=== PATIENT | female | born 1940 | race Caucasian/White ===

== ENCOUNTER → 2018-11-18 | Outpatient (CLI) | payer MEDICARE ==
[~2018-11-18] MED LIST: BUPIVACAINE MPF 0.5% 10 ML VIAL. IJ ONE; IOHEXOL 300 MG/ML 50 ML VIAL. IJ ONE; methylPREDNISolone ACETATE 80 MG/ML VIAL. INJ ONE
--- NOTE | 2018-11-18 10:41 | RAD ---
Examination: ARTHROCENT INT JT ASP/INJ LT History: Left hip pain Comparison/Correlation: 11/14/2018 left hip x-ray exam with pelvis Findings: Risks and benefits of left hip joint therapeutic injection were discussed with the patient and informed consent was obtained. Fluoroscopy was utilized for total of 0.2 minutes. Cleansing with Betadine swabs was performed. Sterile drape was placed. 5 cc of 1 percent lidocaine was administered at an disc space height of the spinal needle placement. A 20-gauge spinal needle was placed into the left hip joint capsule at the lateral left femoral head-neck junction. 80 mg Depo-Medrol and 3 cc of bupivacaine was injected into the left hip joint capsule. The patient tolerated the procedure well without immediate palpitations. Incidental note is made of severe left hip joint degenerative narrowing and remodeling along with spurring. Impression: Successful left hip joint intracapsular administration of Depo-Medrol and bupivacaine. Electronically signed by: Dayo Cameron MD (11/18/2018 10:38 AM) [facility]
== END | disposition home or self-care (01) ==
LOC: RAD 07:44
PROVIDERS: ATTEND Orthopaedic Surgery Sports Medicine
DX: M25.552 Pain in left hip (principal)
CPT/HCPCS: 20610; 77002; J1040; Q9967; 20605

== ENCOUNTER → 2019-02-03 | Outpatient (CLI) | payer MEDICARE, OTHER ==
[~2019-02-03] MED LIST changes: +ACET500T68 PO; +AMLO5TAB10 PO; -BUPIVACAINE MPF 0.5% 10 ML VIAL. IJ ONE; +CALC-31 PO; +CELE200C PO; +CYCL1DRO OP; +FERR142T13 PO; +FEXO1TAB31 PO; +FLAX1CAP PO; +GLUC1TAB69 PO; -IOHEXOL 300 MG/ML 50 ML VIAL. IJ ONE; +LOSA-73 PO; +METR45CR TP; +MONT10TA49 PO; +MULT1CAP15 PO; +PANT40TA77 PO; +SIMV40TA18 PO; -methylPREDNISolone ACETATE 80 MG/ML VIAL. INJ ONE; +reclast
[2019-02-03 09:36] LABS: BASO % 1 % (0-3); EOS # 0.1 x10^3/uL (0.0-0.7); EOS % 2 % (0-3); HEMATOCRIT 35.9 % (36.0-47.0); LYMPH # 1.8 x10^3/uL (1.0-4.8); LYMPH % 30 % (24-48); MEAN CORPUSCULAR HEMOGLOBIN 31 pg (25-35); MEAN CORPUSCULAR HGB CONC 34 g/dL (31-37); MEAN CORPUSCULAR VOLUME 93 fL (79-100); MONO # 0.5 x10^3/uL (0.0-1.1); MONO % 9 % (0-9); NEUT # 3.4 x10^3/uL (1.8-7.7); NEUT % 59 % (31-73); PLATELET COUNT 310 x10^3/uL (140-400); RED BLOOD COUNT 3.86 x10^6/uL (3.50-5.40); RED CELL DISTRIBUTION WIDTH 12.5 % (11.5-14.5); WHITE BLOOD COUNT 5.8 x10^3/uL (4.0-11.0)
[2019-02-03 09:44] LABS: PROTHROMBIN TIME PATIENT 12.1 SEC (11.7-14.0)
[2019-02-03 09:47] LABS: CALCIUM 9.4 mg/dL (8.5-10.1); CREATININE 0.7 mg/dL (0.6-1.0); GFR 81.1; POTASSIUM 3.8 mmol/L (3.5-5.1)
--- NOTE | 2019-02-03 12:49 | EKG ---
[facility] [address] [place] [address] Test Date: 2019-02-03 Test Time: 12:23:01 Pat Name: TRAMAINE WEST Department: Room: Gender: F Dental Nurse: : 1940 Requested By: SAMMY HERNANDEZ Order Number: [id number] Reading MD: Storm Ramirez Measurements Intervals [place] Rate: 85 P: [place]: QRS: 56 QRSD: 70 T: 78 QT: 380 QTc: 452 Interpretive Statements SINUS ARRHYTHMIA WITH PACS MILD NONSPECIFIC ST-T WAVE CHANGES. Electronically Signed On 02-04-2019 11:47:19 OUTDOOR EMERGENCY CARE TECHNICIAN by Storm Ramirez
--- NOTE | 2019-02-03 15:51 | RAD ---
EXAM: Chest, 2 views. HISTORY: Hypertension. Preoperative evaluation. COMPARISON: None. FINDINGS: 2 views of chest are obtained. There is no infiltrate, pleural effusion or pneumothorax. There is bilateral basilar atelectasis. There is a prominent cardiac silhouette. There is hyperinflation likely due to emphysema. IMPRESSION: 1. Hyperinflation likely due to emphysema. 2. Suspected basilar atelectasis. Electronically signed by: Farrah Dunham MD (02/03/2019 3:48 PM) [place] [id number]
== END | disposition home or self-care (01) ==
LOC: SURGPAT 12:33
PROVIDERS: ATTEND Orthopaedic Surgery Sports Medicine
DX: Z01.818 Encounter for other preprocedural examination (principal); M16.12 Unilateral primary osteoarthritis, left hip; I10 Essential (primary) hypertension; J98.11 Atelectasis
CPT/HCPCS: 36415; 71046; 80048; 82040; 82306; 85025; 85610; 85651; 85730; 87641; 93005

== ENCOUNTER 2019-02-24 05:59 | Inpatient (IN) | payer MEDICARE, OTHER ==
[~2019-02-24] VITALS: Ht 157.5 cm; Wt 60.0 kg
[2019-02-24] VITALS (8 sets, daily range): BP systolic 110–137; BP diastolic 49–85
[2019-02-24] MEDS ORDERED: ACETAMINOPHEN 500 MG TABLET PO PRN (06:00)
[2019-02-24] MEDS ORDERED: TRANEXAMIC ACID 1,000 MG in IV NS 50ML -- 1ST BAG INJ ONE (06:00)
[2019-02-24] MEDS ORDERED: ceFAZolin SODIUM IV Push 1 GM VIAL. IVP PRN (06:00)
[2019-02-24] MEDS ORDERED: MELOXICAM 7.5 MG TABLET PO PRN (06:00)
[2019-02-24] MEDS ORDERED: ONDANSETRON PF 4 MG/2 ML VIAL. IV PRN (07:00)
[2019-02-24] MEDS ORDERED: PROCHLORPERAZINE 10 MG/2 ML VIAL. IV PRN (07:00)
[2019-02-24] MEDS ORDERED: LIDOCAINE 1% PF 2 ML VIAL. ID PRN (07:00)
[2019-02-24] MEDS ORDERED: IV RINGERS,LACTATED 1000ML 1,000 ML IV SCH (07:00)
[2019-02-24] MEDS ORDERED: fentaNYL PF VIAL 100 MCG/2 ML VIAL IV PRN ×2 (07:00→07:15)
[2019-02-24] MEDS ORDERED: HYDROmorphone 2 MG/ML VIAL IV PRN (07:00)
[2019-02-24] MEDS ORDERED: MORPHINE SULFATE 2 MG/ML VIAL. IV PRN ×2 (07:00→07:15)
[2019-02-24] MEDS ORDERED: WARF-78 PO (07:04)
[2019-02-24] MEDS ORDERED: fentaNYL PF VIAL 100 MCG/2 ML VIAL ONE ×2 (07:09→08:28)
[2019-02-24] MEDS ORDERED: PROPOFOL 20 ML IV ONE (07:09)
[2019-02-24] MEDS ORDERED: DEXAMETHASONE SOD PHOS 4 MG/ML VIAL ONE (07:09)
[2019-02-24] MEDS ORDERED: ROCURONIUM 50 MG/5 ML VIAL. ONE (07:09)
[2019-02-24] MEDS ORDERED: LIDOCAINE 2% PF 5 ML VIAL. ONE (07:09)
[2019-02-24] MEDS ORDERED: FAMOTIDINE 20 MG/2 ML VIAL ONE (07:09)
[2019-02-24] MEDS ORDERED: diphenhydrAMINE 50 MG/ML VIAL IV PRN (07:15)
[2019-02-24] MEDS ORDERED: METOCLOPRAMIDE HCL 10 MG/2 ML VIAL. IV PRN (07:15)
[2019-02-24] MEDS ORDERED: ZOLPIDEM 5 MG TABLET. PO PRN (07:15)
[2019-02-24] MEDS ORDERED: PROCHLORPERAZINE 5 MG TABLET. PO PRN (07:15)
[2019-02-24] MEDS ORDERED: IV DEXTROSE 5% 250 ML BAG. IV PRN (07:15)
[2019-02-24] MEDS ORDERED: 0.9 % SODIUM CHLORIDE 10 ML DISP.SYRIN. IV PRN (07:15)
[2019-02-24] MEDS ORDERED: DEXTROSE 50% 25 GM / 50ML DISP.SYRIN. IV PRN (07:15)
[2019-02-24 07:24] LABS: PROTHROMBIN TIME PATIENT 13.9 SEC (11.7-14.0)
[2019-02-24] MEDS ORDERED: ceFAZolin SODIUM IV Push 1 GM VIAL. IVP ONE (07:30)
[2019-02-24] MEDS ORDERED: TRANEXAMIC ACID 1,000 MG in IV NS 50ML -- 2ND BAG INJ ONE (08:00)
[2019-02-24] MEDS: MORPHINE SULFATE 5 MG, KETOROLAC 30MG VIAL 30 MG, ROPIVacaine 0.5% PF 60 ML, EPINEPHrin... INT ART ONE ×10 (08:21→09:10)
[2019-02-24] MEDS ORDERED: NEOSTIGMINE METHYLSULFATE 5 MG/5 ML SYRINGE. ONE (08:59)
[2019-02-24] MEDS ORDERED: GLYCOPYRROLATE 1 MG/5 ML VIAL. ONE (08:59)
[2019-02-24] MEDS ORDERED: FERROUS SULFATE 142 MG PO SCH (09:00)
[2019-02-24] MEDS ORDERED: ACETAMINOPHEN 500 MG TABLET PO SCH (09:00)
[2019-02-24] MEDS ORDERED: DESFLURANE > 120 MINUTES IH ONE (09:17)
--- NOTE | 2019-02-24 09:50 | PDOC4 ---
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 Findings: Advanced primary degenerative joint disease of right hip. Blood loss: 150 mL Complications: None Components inserted Gilman and nephew 48 mm R3 shell with a 20 posteriorly directed liner, size 5 standard offset anthology stem with a 32+0 cobalt chrome head Reason for procedure: Patient is a very pleasant individual with severe progressive pain interfering with her activities of daily living and attributable to the above preoperative diagnosis. Clinical and radiographic examination were consistent with the above preoperative diagnosis and after discussion of the risks, benefits, and alternatives, taking into account her failure of conservative therapies, the patient elected to proceed with surgery. Description of procedure: Patient was greeted in the preoperative area by myself for the correct extremity was verified and marked. She was taken back to the operative suite and antibiotics were started as they were brought back. Once in the operative room, patient was transferred gently supine to the operating table and secured to the bed with all pressure points padded. Axillary roll was used. The down leg was padded at the fibular head and heel. Patient was secured the bed with our hip positioning devices. I then appreciated leg lengths in this position. After this, the operative extremity was prepped and draped in our usual sterile fashion including an Ioban Page. We then proceeded to conduct our standard preoperative timeout. I then palpated and marked surface anatomy and avery a line from my standard posterolateral skin incision. Skin was incised with a scalpel and subcutaneous tissue was dissected down the level of fascia with electrocautery. Bleeders were cauterized as they were encountered. Paez elevator was used to sweep aside adherent subcutaneous tissue for later identification and repair of the fascia. Fascia was then incised in line with the skin incision and the gluteus rasheeda was split bluntly in line with its fibers. There was abundant fibrotic tissue present and I excised some of this for exposure. After this, a lap was used to push bursal tissue posteriorly to identify the piriformis and quadratus, these were taken down, the piriformis was tagged for later repair. Our self-retaining retractor was in place. At this point, identified the hip capsule incised in a T-type incision, tagging ends for later repair. The hip was dislocated. I then palpated and marked with electrocautery areas at the greater and lesser trochanters and center of the femoral head and I made measurements for length and offset. I then avery a line on the neck about 1 cm proximal lesser trochanter and made my neck cut through this. The bony remnant was delivered from the operative field. We placed our acetabular retractors and inspected the acetabulum. I excised the soft tissues from the floor the acetabulum as well as the labrum. Osteophytes were taken down posteriorly. After this, we began reaming and reamed down until we encountered a punctate bleeding bony bed. The operative field and then thoroughly irrigated out. The cup was then impacted referencing kwethluk anatomy and the crossbar attachment. I had identified the transverse acetabular ligament. After this, I palpated for the posterior column and greater sciatic notch and referenced this to place a screw into the posterior column. The operative field was irrigated again and my polyethylene liner was then impacted in position and confirmed that it was fully seated on circumferential visualization. We then removed our acetabular retractors and used our proximal femoral elevator and repositioned the leg. I used the marito cutting osteotome followed by canal finding reamer followed by lateralizing reamer. We then began broaching and broached to the above size and trialed different head and necks, using our measurements as a guide as well. The above sizes gave the best range of motion and stability. After this, the trial components were removed and the canal was thoroughly irrigated. I then impacted my femoral stem into position. We then re-trialed the head sizes and selected the above size. The hip was redislocated and the Shultz taper region was washed and dried. The femoral head was then gently impacted in position and the acetabulum was inspected and irrigated to make sure was free of debris. After this, the hip was reduced. Excellent range of motion and stability were achieved. I was happy with the leg lengths. We then closed capsule with simple interrupted #2 Ethibond. Piriformis was reapproximated through drill holes. I then injected my periarticular mixture into the sandy-incisional soft tissues below. Fascia was closed was running #2 Quill suture. Inverted interrupted 2-0 Vicryl in a multilayered fashion was used for subcutaneous tiss ue and running 3-0 Monocryl for skin. Prior to wound closure, all counts correct 2. No complications. At the conclusion, the hip region was cleansed and dried and our incisional wound vacuum was applied. Patient tolerated surgery well. At the conclusion, they were laid supine and transferred gently supine to the hospital bed and taken to PACU in a stable and extubated condition. P ostoperative plan is to admit the patient to the joint center for DVT and antibiotic prophylaxis as well as to begin the rehabilitation and receive likely IV pain medicine. GELACIO HERNANDEZ II, MD Feb 24, 2019 09:50
[2019-02-24] MEDS: fentaNYL PF VIAL 100 MCG/2 ML VIAL IV PRN ×2 (09:55→10:04)
--- NOTE | 2019-02-24 10:31 | RAD ---
AP view of the pelvis Clinical indications: Postoperative study. FINDINGS: Total left hip arthroplasty is evident which is well aligned in this AP projection. The femoral stem is located centrally within the intramedullary canal of the proximal left femur. No acute fracture or lytic process is seen. IMPRESSION: Total left hip arthroplasty. Electronically signed by: Julito Rubin MD (02/24/2019 10:28 AM) [id number]
[2019-02-24] MEDS: CALCIUM CARB/VIT D3 500/200 TABLET. PO SCH ×2 (12:00→16:30)
[2019-02-24] MEDS: ONDANSETRON PF 4 MG/2 ML VIAL. IV SCH ×2 (12:00→17:35)
[2019-02-24] MEDS: ONDANSETRON ODT 4 MG TAB.RAPDIS. PO SCH ×2 (12:00→17:35)
[2019-02-24] MEDS: IV NORMAL SALINE 1000ML BAG 1,000 ML IV SCH (12:15)
[2019-02-24] MEDS: ceFAZolin SODIUM IV Push 1 GM VIAL. IVP SCH ×2 (12:29→19:09)
[2019-02-24] MEDS: PSEUDOEPHEDRINE ER 120 MG TABLET.ER. PO SCH (12:52)
[2019-02-24] MEDS: CETIRIZINE HCL 10 MG TABLET. PO SCH (12:52)
[2019-02-24] MEDS ORDERED: WARFARIN 7.5 MG TABLET. PO ONE (16:00)
[2019-02-24] MEDS: FERROUS SULFATE 325 MG TABLET. PO SCH (16:30)
[2019-02-24] MEDS: oxyCODONE IR 5 MG TABLET PO PRN ×2 (16:31→20:38)
[2019-02-24] MEDS: SIMVASTATIN 40 MG TABLET. PO SCH (20:37)
[2019-02-24] MEDS: MONTELUKAST SODIUM 10 MG TABLET. PO SCH (20:37)
[2019-02-24] MEDS: metroNIDAZOLE 0.75% TOPICAL 1 APP TUBE TP SCH (20:38)
[2019-02-25] MEDS: ceFAZolin SODIUM IV Push 1 GM VIAL. IVP SCH (01:13)
[2019-02-25 03:00] VITALS: BP 138/69
[2019-02-25 04:40] LABS: HEMATOCRIT 28.8 % (36.0-47.0); HEMOGLOBIN 9.8 g/dL (12.0-15.5)
[2019-02-25 04:46] LABS: PROTHROMBIN TIME PATIENT 17.1 SEC (11.7-14.0)
[2019-02-25] MEDS: oxyCODONE IR 5 MG TABLET PO PRN ×5 (05:33→21:37)
[2019-02-25 06:00] VITALS: BP 129/76
[2019-02-25] MEDS: ONDANSETRON ODT 4 MG TAB.RAPDIS. PO SCH ×2 (06:00)
[2019-02-25] MEDS: ONDANSETRON PF 4 MG/2 ML VIAL. IV SCH ×2 (06:00)
[2019-02-25] MEDS ORDERED: MAGNESIUM HYDROXIDE 2,400 MG/30 ML ORAL.SUSP. PO PRN (06:00)
[2019-02-25] MEDS: IV NORMAL SALINE 1000ML BAG 1,000 ML IV SCH (06:51)
[2019-02-25] MEDS ORDERED: PANTOPRAZOLE 40 MG TABLET.DR. PO SCH (07:30)
[2019-02-25] MEDS: CALCIUM CARB/VIT D3 500/200 TABLET. PO SCH ×3 (08:01→17:05)
[2019-02-25] MEDS: CETIRIZINE HCL 10 MG TABLET. PO SCH ×2 (08:02→20:59)
[2019-02-25] MEDS: PSEUDOEPHEDRINE ER 120 MG TABLET.ER. PO SCH ×2 (08:03→21:00)
[2019-02-25] MEDS: ACETAMINOPHEN 500 MG TABLET PO SCH ×3 (08:03→20:59)
[2019-02-25] MEDS: SENNOSIDES/DOCUSATE 8.6/50MG TABLET. PO SCH (08:04)
[2019-02-25] MEDS: MULTIVITAMIN with MINERAL TABLET. PO SCH (08:04)
[2019-02-25] MEDS: FERROUS SULFATE 325 MG TABLET. PO SCH ×2 (08:04→17:05)
[2019-02-25] MEDS: amLODIPine BESYLATE 5 MG TABLET PO SCH (08:07)
[2019-02-25] MEDS: metroNIDAZOLE 0.75% TOPICAL 1 APP TUBE TP SCH ×2 (08:10→19:46)
--- NOTE | 2019-02-25 08:48 | PDOC ---
ORTHO PROGRESS NOTES Subjective Patient feels like she is doing well. She did have some very brief episodes where she was shaking, these were short-lived. She denies any chest pain, trouble breathing, dizziness or lightheadedness. Vitals Vital Signs Date Time Temp Pulse Resp B/P (MAP) Pulse Ox O2 Delivery O2 Flow Rate FiO2 02/25/19 08:10 Room Air 02/25/19 08:07 87 121/70 02/25/19 06:34 20 94 02/25/19 06:00 98.1 98.1 02/24/19 10:04 10.0 Labs Laboratory Tests Test 02/24/19 06:55 02/25/19 03:35 Prothrombin Time 13.9 SEC (11.7-14.0) 17.1 SEC (11.7-14.0) Prothromb Time International Ratio 1.1 (0.8-1.1) 1.4 (0.8-1.1) Activated Partial Thromboplast Time 32 SEC (24-38) Hemoglobin 9.8 g/dL (12.0-15.5) Hematocrit 28.8 % (36.0-47.0) Mean Corpuscular Hemoglobin Concent 34 g/dL (31-37) Laboratory Tests Test 02/25/19 03:35 Hemoglobin 9.8 g/dL (12.0-15.5) Hematocrit 28.8 % (36.0-47.0) Mean Corpuscular Hemoglobin Concent 34 g/dL (31-37) Prothrombin Time 17.1 SEC (11.7-14.0) Prothromb Time International Ratio 1.4 (0.8-1.1) Notes She is awake and alert and sitting in bed. Dressing is intact. Normal motor and sensation are present in her operative extremity. Assessment and Plan She will continue PT and OT after her left total hip arthroplasty. We will monitor her symptoms. Continue Coumadin. SAMMY HERNANDEZ II, MD Feb 25, 2019 08:48
[2019-02-25] MEDS ORDERED: ONDANSETRON PF 4 MG/2 ML VIAL. IV PRN (12:00)
[2019-02-25] MEDS ORDERED: ONDANSETRON ODT 4 MG TAB.RAPDIS. PO PRN (12:00)
--- NOTE | 2019-02-25 14:48 | NUR ---
Pharmacy Warfarin Dosing Note S:Pharmacy consulted to assist with anticoagulation therapy started with target INR: 1.6 - 2.5 O:TRAMAINE WEST is a 78 year old F with BALJIT LABS: Last INR: 1.4 Last HGB: 9.8 Last HCT: 28.8 Last PLT: Last dose of 7.5 mg given on 02/24/19 at 1629 Previous Regimen: Vitamin K given: Drug Interaction Changes: Ongoing Drug Interactions: A:INR of 1.4 is below desired range. Target range for this patient is: 1.6 - 2.5 P: Warfarin dose: 5 mg Today at 1600 Bridge Therapy: Next INR due IN AM Pharmacy anticoagulation service will continue to follow. DOC HICKS [facility], 02/25/19 1053
[2019-02-25] MEDS ORDERED: WARFARIN 5 MG TABLET. PO ONE (16:00)
[2019-02-25] MEDS ORDERED: BISACODYL 10 MG SUPP.RECT. PR PRN (16:00)
[2019-02-25] MEDS: CALCIUM CARBONATE 500 MG TAB.CHEW PO PRN ×2 (17:08→21:01)
[2019-02-25 17:55] VITALS: BP 145/83
[2019-02-25] MEDS: LOSARTAN POTASSIUM 50 MG TABLET. PO SCH (20:57)
[2019-02-25] MEDS: MONTELUKAST SODIUM 10 MG TABLET. PO SCH (20:58)
[2019-02-25] MEDS: SIMVASTATIN 40 MG TABLET. PO SCH (20:59)
--- NOTE | 2019-02-25 21:49 | NUR ---
Roxicodone and MOM given per request. Saline lock DC'd after painful flush and redness at site. Ambulates w/o difficulty.
[2019-02-26] MEDS: oxyCODONE IR 5 MG TABLET PO PRN ×3 (01:35→20:03)
[2019-02-26] MEDS: CALCIUM CARBONATE 500 MG TAB.CHEW PO PRN ×2 (01:39→20:03)
[2019-02-26] MEDS: ACETAMINOPHEN 500 MG TABLET PO SCH ×4 (03:00→21:17)
[2019-02-26 05:08] LABS: HEMATOCRIT 28.2 % (36.0-47.0); HEMOGLOBIN 9.9 g/dL (12.0-15.5)
[2019-02-26 05:17] LABS: PROTHROMBIN TIME PATIENT 23.9 SEC (11.7-14.0)
[2019-02-26 05:42] VITALS: BP 127/81
--- NOTE | 2019-02-26 06:36 | NUR ---
+ loose stool. Assisted into recliner. Call light in reach.
[2019-02-26] MEDS: PANTOPRAZOLE 40 MG TABLET.DR. PO SCH (06:51)
--- NOTE | 2019-02-26 07:37 | PDOC ---
ORTHO PROGRESS NOTES Subjective Patient with no complaint of pain this morning but is nauseated. Post-op Day: 1 Procedure L BALJIT Vitals Vital Signs Date Time Temp Pulse Resp B/P (MAP) Pulse Ox O2 Delivery O2 Flow Rate FiO2 02/26/19 05:42 97.7 83 20 127/81 (96) 96 Room Air 97.7 Labs Laboratory Tests Test 02/25/19 03:35 02/26/19 04:10 Hemoglobin 9.8 g/dL (12.0-15.5) 9.9 g/dL (12.0-15.5) Hematocrit 28.8 % (36.0-47.0) 28.2 % (36.0-47.0) Mean Corpuscular Hemoglobin Concent 34 g/dL (31-37) 35 g/dL (31-37) Prothrombin Time 17.1 SEC (11.7-14.0) 23.9 SEC (11.7-14.0) Prothromb Time International Ratio 1.4 (0.8-1.1) 2.2 (0.8-1.1) Laboratory Tests Test 02/26/19 04:10 Hemoglobin 9.9 g/dL (12.0-15.5) Hematocrit 28.2 % (36.0-47.0) Mean Corpuscular Hemoglobin Concent 35 g/dL (31-37) Prothrombin Time 23.9 SEC (11.7-14.0) Prothromb Time International Ratio 2.2 (0.8-1.1) Notes awake and alert sitting in chair at bedside. Assessment and Plan POD # 1 S/P L BALJIT motor and sensation intact distally dressing dry and intact calf soft and non tender PT today NIEVES العراقي APRN Feb 26, 2019 07:37
[2019-02-26] MEDS: FERROUS SULFATE 325 MG TABLET. PO SCH ×2 (08:00→17:00)
[2019-02-26] MEDS: CALCIUM CARB/VIT D3 500/200 TABLET. PO SCH ×3 (08:00→17:00)
[2019-02-26] MEDS: CETIRIZINE HCL 10 MG TABLET. PO SCH ×2 (09:00→21:15)
[2019-02-26] MEDS: PSEUDOEPHEDRINE ER 120 MG TABLET.ER. PO SCH ×2 (09:00→21:00)
[2019-02-26] MEDS: MULTIVITAMIN with MINERAL TABLET. PO SCH (09:00)
[2019-02-26] MEDS: SENNOSIDES/DOCUSATE 8.6/50MG TABLET. PO SCH (09:00)
--- NOTE | 2019-02-26 10:08 | NUR ---
Pharmacy Warfarin Dosing Note S:Pharmacy consulted to assist with anticoagulation therapy started with target INR: 1.6 - 2.5 O:TRAMAINE WEST is a 78 year old F with BALJIT LABS: Last INR: 2.2 Last HGB: 9.9 Last HCT: 28.2 Last dose of 5 mg given on 02/25/19 at 1706 A:INR of 2.2 is within desired range. Target range for this patient is: 1.6 - 2.5 P: Warfarin dose: 1 mg Today at 1600 Next INR due 02/27/19 AM Pharmacy anticoagulation service will continue to follow. GUICHO SONG [facility], 02/26/19 [id number]
[2019-02-26] MEDS: amLODIPine BESYLATE 5 MG TABLET PO SCH (11:48)
[2019-02-26] MEDS: metroNIDAZOLE 0.75% TOPICAL 1 APP TUBE TP SCH ×2 (11:57→21:00)
--- NOTE | 2019-02-26 15:07 | PATHOLOGY ---
[facility] Accession Number: [id number] . 01 Material submitted: . femur - FEMORAL HEAD, LEFT. Modifiers: head, left . 01 Clinical history: . Primary osteoarthritis left hip . 02 Diagnosis: Femoral head, left total hip arthroplasty: - Advanced degenerative arthritis with subarticular fibrosis and focal bone remodeling. . (JPM:mml; 02/26/2019) [facility] 02/26/2019 1259 Local . 02 Comment: There is no evidence of malignancy. . (JPM:mml; 02/26/2019) . 02 Electronically signed: . Surya Cast MD, Pathologist NPI- [id number] . 01 Gross description: . The specimen is received in formalin, labeled "Gabbie Jimenez, left femoral head". Received is a femoral head with attached femoral neck measuring 5.1 x 4.6 x 4.4 cm in greatest dimensions. The articular surface is smooth to granular in appearance with a moderate to severe amount of eburnation, as well as osteophytic lipping. Sectioning reveals yellow-white to pink-white cut surfaces with no grossly distinct nodules or lesions. The specimen is submitted representatively in cassette A1, following decalcification. (CAA; 02/24/2019) QAC/QAC 02/24/2019 1605 Local . 02 Pathologist provided ICD-10: M16.12 . 02 CPT . 846074, [id number] Specimen Comment: A courtesy copy of this report has been sent to [phone], [phone] Specimen Comment: [id number] Specimen Comment: Report sent to / DR HOOD Performed at: [address], [place], [place] [id number] MD Martin Braun MD Phone: [phone] Performed at: [address] [id number] MD Surya Cast MD Phone: [phone]
[2019-02-26] MEDS: WARFARIN 1 MG TABLET. PO ONE ×2 (15:49→16:00)
--- NOTE | 2019-02-26 16:00 | NUR ---
Held Al today, pt having surgery in am. Addendum: 02/26/19 at 1908 by AMY GIL RN Ignore above note, charted on wrong patient.
--- NOTE | 2019-02-26 16:24 | SNU/HH DC ---
DISCHARGE ORDERS DISCHARGE INFORMATION: DISCHARGE DATE: Feb 27, 2019 FINAL DIAGNOSIS Left hip DJD, s/p BALJIT CONDITION ON DISCHARGE: Stable CODE STATUS: Code Status: Full INTERMEDIATE: SNF STAY <30 DAYS: Yes HOSPICE: HOSPICE: No HOSPICE EVAL & TREAT: No LTAC: ADMIT TO LTAC: No POST DISCHARGE ORDERS: ACTIVITY ORDERS: Activity as tolerated WEIGHT BEARING STATUS: As tolerated BATHING ORDERS: Shower-keep dressing dry DIET AFTER DISCHARGE: Regular WOUND/INCISION CARE: Ice to area for comfort, Do not change dressing FOLLOW-UP: PHYSICIAN FOLLOW-UP: Eunice in 2 wks ANTICOAGULATION F/U NEEDED: per Pharmacy TREATMENT/EQUIPMENT ORDERS: Physical Therapy For: Evalulation/Treatment Occupational Therapy For: Evaluation/Treatment DISCHARGE MEDICATIONS: Home Meds Reported Medications Warfarin Sodium (COUMADIN) 5 Mg Tablet, 5 MG PO X1 NIGHT PRIOR TO MANN for PREOP, #30 TAB 02/24/19 Metronidazole (METRONIDAZOLE) 45 Gm Cream..g., 45 GM TP BID for for skin outbreaks, EACH 02/04/19 [reclast] No Conflict Check, 1 UD 02/04/19 Calcium Carbonate/Vitamin D3 (CALCIUM 500 + D TABLET) 1 Each Tablet, 1 EACH PO TID for treat osteopenia, TAB 02/03/19 Fexofenadine/Pseudoephedrine (LISA-D 24 HOUR TABLET) 1 Each Tab.er.24h, 1 EACH PO DAILY for treat allergies, TAB 02/03/19 Acetaminophen (ACETAMINOPHEN) 500 Mg Tablet, 500 MG PO DAILY for treat arthritis pain, TAB 02/03/19 Celecoxib (CELEBREX) 200 Mg Capsule, 200 MG PO BID for anti-inflammatory for 30 Days, CAP 0 Refills 02/03/19 Losartan Potassium (LOSARTAN POTASSIUM) 50 Mg Tablet, 25 MG PO DAILY for HYPERTENSION, TAB 02/03/19 Cyclosporine (RESTASIS) 1 Each Droperette, 1 EACH OP DAILY for treat dry eyes, DROP 02/03/19 Montelukast Sodium (MONTELUKAST SODIUM TABLET ) 10 Mg Tablet, 10 MG PO HS for FOR ASTHMA, TAB 0 Refills 02/03/19 Flaxseed/Omega3,6,9/Fatty Acid (FLAX SEED OIL 1,300 MG SOFTGEL) 1 Each Capsule, 1000 MG PO DAILY for supplement, CAP 02/03/19 Glucosamine Hcl/Chondr Mann A Na (OSTEO BI-FLEX CAPLET) 1 Each Tablet, 1 EACH PO DAILY for supplement, TAB 02/03/19 Multivitamin (MULTIVITAMINS) 1 Each Capsule, 1 EACH PO DAILY for supplement, CAP 02/03/19 Simvastatin (SIMVASTATIN) 40 Mg Tablet, 40 MG PO HS for FOR CHOLESTEROL, #30 TAB 0 Refills 02/03/19 Amlodipine Besylate (AMLODIPINE BESYLATE) 5 Mg Tablet, 5 MG PO DAILY for treat hypertension, TAB 02/03/19 Ferrous Sulfate (Slow Fe) 142 Mg Tablet.er, 142 MG PO DAILY for treat anemia, TAB.SR 02/03/19 Pantoprazole Sodium (PANTOPRAZOLE SODIUM ) 40 Mg Tablet.dr, 20 MG PO DAILYAC for GERD, TAB 02/03/19 SAMMY HERNANDEZ II, MD Feb 26, 2019 16:24
[2019-02-26 18:01] VITALS: BP 115/56
[2019-02-26 21:00] VITALS: BP 139/75
[2019-02-26] MEDS: MONTELUKAST SODIUM 10 MG TABLET. PO SCH (21:15)
[2019-02-26] MEDS: SIMVASTATIN 40 MG TABLET. PO SCH (21:16)
[2019-02-26] MEDS: LOSARTAN POTASSIUM 50 MG TABLET. PO SCH (21:17)
[2019-02-27] MEDS: oxyCODONE IR 5 MG TABLET PO PRN ×3 (02:26→13:16)
[2019-02-27] MEDS: ACETAMINOPHEN 500 MG TABLET PO SCH ×2 (03:00→08:29)
[2019-02-27 05:50] LABS: HEMATOCRIT 28.5 % (36.0-47.0); HEMOGLOBIN 9.8 g/dL (12.0-15.5)
[2019-02-27 05:53] VITALS: BP 129/73
[2019-02-27] MEDS: PANTOPRAZOLE 40 MG TABLET.DR. PO SCH (05:58)
[2019-02-27] MEDS ORDERED: BISACODYL 5 MG TABLET.DR. PO PRN (06:00)
[2019-02-27 06:01] LABS: PROTHROMBIN TIME PATIENT 20.1 SEC (11.7-14.0)
--- NOTE | 2019-02-27 06:03 | NUR ---
Assisted to toilet then recliner. Bisacodyl tabs given per request. + flatus.
[2019-02-27] MEDS: FERROUS SULFATE 325 MG TABLET. PO SCH (08:00)
[2019-02-27] MEDS: CALCIUM CARB/VIT D3 500/200 TABLET. PO SCH ×2 (08:28→13:09)
[2019-02-27] MEDS: MULTIVITAMIN with MINERAL TABLET. PO SCH (08:29)
[2019-02-27] MEDS: PSEUDOEPHEDRINE ER 120 MG TABLET.ER. PO SCH (08:29)
[2019-02-27] MEDS: SENNOSIDES/DOCUSATE 8.6/50MG TABLET. PO SCH (08:29)
[2019-02-27] MEDS: CETIRIZINE HCL 10 MG TABLET. PO SCH (08:29)
[2019-02-27] MEDS: amLODIPine BESYLATE 5 MG TABLET PO SCH (08:31)
[2019-02-27 08:35] VITALS: BP 128/80
--- NOTE | 2019-02-27 08:40 | PDOC ---
ORTHO PROGRESS NOTES Subjective She is complaining of some indigestion this morning, her pain is controlled. She denies any vomiting, she is having bowel movements, passing gas, tolerating her diet. Vitals Vital Signs Date Time Temp Pulse Resp B/P (MAP) Pulse Ox O2 Delivery O2 Flow Rate FiO2 02/27/19 08:35 101 128/80 (96) 02/27/19 08:12 Room Air 02/27/19 05:53 97.9 20 96 97.9 Labs Laboratory Tests Test 02/26/19 04:10 02/27/19 05:07 Hemoglobin 9.9 g/dL (12.0-15.5) 9.8 g/dL (12.0-15.5) Hematocrit 28.2 % (36.0-47.0) 28.5 % (36.0-47.0) Mean Corpuscular Hemoglobin Concent 35 g/dL (31-37) 35 g/dL (31-37) Prothrombin Time 23.9 SEC (11.7-14.0) 20.1 SEC (11.7-14.0) Prothromb Time International Ratio 2.2 (0.8-1.1) 1.7 (0.8-1.1) Laboratory Tests Test 02/27/19 05:07 Hemoglobin 9.8 g/dL (12.0-15.5) Hematocrit 28.5 % (36.0-47.0) Mean Corpuscular Hemoglobin Concent 35 g/dL (31-37) Prothrombin Time 20.1 SEC (11.7-14.0) Prothromb Time International Ratio 1.7 (0.8-1.1) Notes She is awake and alert and sitting in a chair. She remains neurovascularly intact to her operative extremity Assessment and Plan She can be transferred to [facility] today. Weight-bear as tolerated. She should receive PT and OT. Coumadin for 1 month. SAMMY HERNANDEZ II, MD Feb 27, 2019 08:40
[2019-02-27] MEDS: metroNIDAZOLE 0.75% TOPICAL 1 APP TUBE TP SCH (09:00)
[2019-02-27] MEDS ORDERED: WARF4TAB64 PO (10:57)
--- NOTE | 2019-02-27 10:58 | NUR ---
Pharmacy Warfarin Dosing Note S:Pharmacy consulted to assist with anticoagulation therapy started 02/24/19 with target INR: 1.6 - 2.5 O:TRAMAINE WEST is a 78 year old F with a BALJIT Allergies:No Known Medication Allergies lactose Height: 5 feet, 2 inches Weight: 60 kg LABS: Last INR: 1.7 Last HGB: 9.8 Last HCT: 38.5 Last PLT: - Ongoing Drug Interactions: A:INR within desired Range. Target Range for this patient is: 1.6 - 2.5 P: Warfarin dose: 4 mg will be given today prior to discharge. Give 4 mg daily. Draw INR on 03/03/19, and request attending physician to dose warfarin for a goal INR 1.6 - 2.5 through end of therapy 04/06/19 (6 weeks of therapy). Indication for warfarin is prevention of VTE after major joint surgery. HEATHER GROSS [facility], 02/27/19 1054
--- NOTE | 2019-02-27 10:59 | PDOC3 ---
Discharge Summary Visit Information Date of Admission: Feb 24, 2019 Date of Discharge: Feb 27, 2019 Admitting Diagnosis: advanced left hip degenerative joint disease Brief Hospital Course Allergies Allergies Coded Allergies Type Severity Reaction Last Updated Verified No Known Medication Allergies Allergy Unknown 02/21/19 Yes lactose Adverse Reaction Mild Nausea and Vomiting 02/25/19 Yes Vital Signs Vital Signs Date Time Temp Pulse Resp B/P (MAP) Pulse Ox O2 Delivery O2 Flow Rate FiO2 02/27/19 08:35 101 128/80 (96) 02/27/19 08:12 Room Air 02/27/19 05:53 97.9 20 96 97.9 Lab Results Laboratory Tests Test 02/26/19 04:10 02/27/19 05:07 Hemoglobin 9.9 g/dL (12.0-15.5) 9.8 g/dL (12.0-15.5) Hematocrit 28.2 % (36.0-47.0) 28.5 % (36.0-47.0) Mean Corpuscular Hemoglobin Concent 35 g/dL (31-37) 35 g/dL (31-37) Prothrombin Time 23.9 SEC (11.7-14.0) 20.1 SEC (11.7-14.0) Prothromb Time International Ratio 2.2 (0.8-1.1) 1.7 (0.8-1.1) Laboratory Tests Test 02/27/19 05:07 Hemoglobin 9.8 g/dL (12.0-15.5) Hematocrit 28.5 % (36.0-47.0) Mean Corpuscular Hemoglobin Concent 35 g/dL (31-37) Prothrombin Time 20.1 SEC (11.7-14.0) Prothromb Time International Ratio 1.7 (0.8-1.1) Brief Hospital Course Ms. Jimenez is a 78 old female who presented to my outpatient orthopedic surgery clinic with complaints of severe and progressive pain that failed conservative therapies including injections. We had a discussion of the risks, benefits, alternatives to total hip arthroplasty and she elected to proceed. She tolerated surgery well and recovered well from anesthesia in the PACU. She was then taken to the [facility] for care and observation. She did receive PT, OT, DVT and antibiotic prophylaxis. She recovered well from surgery and remained hemodynamically stable and afebrile throughout the hospitalization. Pain was controlled on oral pain medicine at the time of discharge. Good progress was made with therapy throughout the hospitalization, and activities of daily living were accomplished by the patient. The incision was clean dry and intact and the operative extremity had normal motor and sensation. Discharge Information Condition at Discharge: Stable Follow Up: Weeks Disposition/Orders: D/C to Another Facility Scheduled Amlodipine Besylate (Amlodipine Besylate) 5 Mg Tablet, 5 MG PO DAILY for treat hypertension, (Reported) Entered as Reported by: BEE GARCIA on 02/03/19845 Last Taken: Unknown Dose on 02/24/19399 Last Action: Continued on 02/24/19705 by PARAG HERNANDEZ MD Calcium Carbonate/Vitamin D3 (Calcium 500 + D Tablet) 1 Each Tablet, 1 EACH PO TID for treat osteopenia, (Reported) Entered as Reported by: BEE GARCIA on 02/03/19845 Last Action: Converted on 02/24/19705 by PARAG HERNANDEZ MD Celecoxib (Celebrex) 200 Mg Capsule, 200 MG PO BID for anti-inflammatory for 30 Days, Ref 0 (Reported) Entered as Reported by: BEE GARCIA on 02/03/19845 Last Action: HELD on 02/24/19705 by PARAG HERNANDEZ MD Cyclosporine (Restasis) 1 Each Droperette, 1 EACH OP DAILY for treat dry eyes, (Reported) Entered as Reported by: BEE GARCIA on 02/03/19845 Ferrous Sulfate (Slow Fe) 142 Mg Tablet.er, 142 MG PO DAILY for treat anemia, (Reported) Entered as Reported by: BEE GARCIA on 02/03/19845 Last Action: Converted on 02/24/19705 by PARAG HERNANDEZ MD Fexofenadine/Pseudoephedrine (Martha-D 24 Hour Tablet) 1 Each Tab.er.24h, 1 EACH PO DAILY for treat allergies, (Reported) Entered as Reported by: BEE GARCIA on 02/03/19845 Last Action: Converted on 02/24/19705 by PARAG HERNANDEZ MD Losartan Potassium (Losartan Potassium) 50 Mg Tablet, 25 MG PO DAILY for HYPERTENSION, (Reported) Entered as Reported by: BEE GARCIA on 02/03/19845 Last Action: Continued on 02/24/19705 by PARAG HERNANDEZ MD Metronidazole (Metronidazole) 45 Gm Cream..g., 45 GM TP BID for for skin outbreaks, (Reported) Entered as Reported by: BEE GARCIA on 02/04/191526 Last Action: Converted on 02/24/19705 by PARAG HERNANDEZ MD Montelukast Sodium (Montelukast Sodium Tablet ) 10 Mg Tablet, 10 MG PO HS for FOR ASTHMA, Ref 0 (Reported) Entered as Reported by: BEE GARCIA on 02/03/19845 Last Action: Continued on 02/24/19705 by PARAG HERNANDEZ MD Multivitamin (Multivitamins) 1 Each Capsule, 1 EACH PO DAILY for supplement, (Reported) Entered as Reported by: BEE GARCIA on 02/03/19845 Last Action: HELD on 02/24/19705 by PARAG HERNANDEZ MD Pantoprazole Sodium (Pantoprazole Sodium ) 40 Mg Tablet.dr, 20 MG PO DAILYAC for GERD, (Reported) Entered as Reported by: BEE GARCIA on 02/03/19845 Last Taken: Unknown Dose on 02/24/19 0400 Last Action: Continued on 02/24/19705 by PARAG HERNANDEZ MD Simvastatin (Simvastatin) 40 Mg Tablet, 40 MG PO HS for FOR CHOLESTEROL, #30 Ref 0 (Reported) Entered as Reported by: EBE GARCIA on 02/03/19845 Last Action: Continued on 02/24/19705 by PARAG HERNANDEZ MD Warfarin Sodium (Coumadin) 5 Mg Tablet, 5 MG PO X1 NIGHT PRIOR TO MARTINEZ for PREOP, #30 (Reported) Entered as Reported by: UMANG BARAHONA on 02/24/19703 Last Action: HELD on 02/24/19705 by PARAG HERNANDEZ MD Warfarin Sodium (Warfarin Sodium) 4 Mg Tablet, 4 MG PO DAILY for BLOOD THINNER, #45 Ref 0 (Reported) Entered as Reported by: DEBO WISE on 02/27/19 1057 [reclast] , 1 UD, (Reported) Entered as Reported by: BEE GARCIA on 02/04/191526 Last Action: HELD on 02/24/19705 by PARAG HERNANDEZ MD Discontinued Medications Acetaminophen (Acetaminophen) 500 Mg Tablet, 500 MG PO DAILY for treat arthritis pain, (Reported) Entered as Reported by: BEE GARCIA on 02/03/19845 Last Action: Continued on 02/24/19705 by PARAG HERNANDEZ MD Flaxseed/Omega3,6,9/Fatty Acid (Flax Seed Oil 1,300 Mg Softgel) 1 Each Capsule, 1,000 MG PO DAILY for supplement, (Reported) Entered as Reported by: BEE GARCIA on 02/03/19845 Last Action: HELD on 02/24/19705 by PARAG HERNANDEZ MD Glucosamine Hcl/Chondr Martinez A Na (Osteo Bi-Flex Caplet) 1 Each Tablet, 1 EACH PO DAILY for supplement, (Reported) Entered as Reported by: BEE GARCIA on 02/03/19845 Last Action: HELD on 02/24/19705 by PARAG HERNANDEZ MD Patient Instructions Patient Instructions She is be transferred to a rehabilitation facility. We will get her started on outpatient therapy as soon as we are able. The patient will be on Coumadin for a month. She can weight-bear as tolerated. Worrisome signs and symptoms that should prompt a phone call to my office were discussed. We'll see her back in 2 weeks, sooner should a problem arise. SAMMY HERNANDEZ II, MD Feb 27, 2019 10:59
[2019-02-27] MEDS ORDERED: WARFARIN 4 MG TABLET. PO ONE (13:00)
--- NOTE | 2019-02-27 13:26 | NUR ---
reviewed discharge instructions. she is transferring to [facility] in [place]. reviewed restrictions to activities of daily living such as bathing driving and medications especially the new ones --Coumadin, Zofran, mom, and Percocet. reviewed the the care of her incision and the ALONSO drain. questions answered.
[2019-02-27 14:53] VITALS: BP 132/73
== END 2019-02-27 15:00 | DRG 470 ==
LOC: SURHIP 05:59 → 4 SOUTHEST 11:06
PROVIDERS: ADMIT Orthopaedic Surgery Sports Medicine; ATTEND Orthopaedic Surgery Sports Medicine
PROC: 0SRB02Z Replacement of Left Hip Joint with Metal on Polyethylene Synthetic Substitute, Open Approach (ICD-10-PCS; principal; 2019-02-24 07:30)
DX: M16.12 Unilateral primary osteoarthritis, left hip (principal); M16.11 Unilateral primary osteoarthritis, right hip; Z79.01 Long term (current) use of anticoagulants; I10 Essential (primary) hypertension; K21.9 Gastro-esophageal reflux disease without esophagitis; E78.5 Hyperlipidemia, unspecified
CPT/HCPCS: 36415; 72170; 85014; 85018; 85610; 85730; 86850; 86900; 86901; A7015; C1713; J0171; J0690; J1100; J1885; J2001; J2270; J2704; J2710; J2795; J3010; J3490; J7030; J7120; Q0162; 97110; 97116; 97150; 97530; 97535; G0378